=== PATIENT | female | born 1955 | race Hispanic/Latino ===

== ENCOUNTER 2019-02-27 16:24 | Emergency (ER) | payer OTHER, MEDICARE ==
[~2019-02-27] VITALS: Ht 167.6 cm; Wt 54.4 kg
--- OUTSIDE RECORDS SUMMARY | 2019-02-27 16:26 | XMS REPORT ---
Author Author [facility] Address Unknown Phone Unavailable Care Team Providers Care Web Site Manager Name Role Phone Unavailable Unavailable Problems This patient has no known problems. Allergies, Adverse Reactions, Alerts This patient has no known allergies or adverse reactions. Medications This patient has no known medications. Results Test Description Test Time Test Comments Text Results Atomic Results Result Comments RAD, SPINE, LUMBAR, 2 OR 3 VIEWS 2018-11-09 11:34:00 Reason for Exam:->M54.12 FINAL REPORT TECHNIQUE: Frontal, lateral, and cone-down views of the lumbosacral spine dated 11/09/2018. HISTORY: M54.12. COMPARISON: None. FINDINGS:There are 5 [id number] vertebral bodies. Bones are osteopenic. There is an exaggerated lumbar lordosis. No fracture or malalignment is seen. There is narrowing of the L4-L5 and L5-S1 disc space. Bony foraminal narrowing is seen at L4-L5 and L5-S1. Normal bowel gas pattern is seen. IMPRESSION:No fracture or malalignment. Degenerative changes as above. Signed: Marion Tucker MDReport Verified Date/Time: 11/09/2018 11:34:17 Reading Location: [facility] Reading Room , SPINE, CERVICAL, 2 OR 3 VIEWS 2018-11-09 11:26:00 Reason for Exam:->M54.12 FINAL REPORT TECHNIQUE: Frontal, lateral and open mouth views of the cervical spine dated 11/09/2018. HISTORY: M54.12. COMPARISON: None. FINDINGS:The cervical spine is visualized to the skull base to the top of T2. Anterior cervical fusion hardware extending from C3 through C7 with fusion of the vertebral bodies. Bones are osteopenic. There is a normal cervical lordosis. No fracture or malalignment is seen. Prevertebral soft tissues are normal in thickness. Airway is patent. Visualized lung apices are clear. IMPRESSION:No fracture or malalignment. Status post cervical fusion. Signed: Marion Tuckereplyubov Verified Date/Time: 11/09/2018 11:26:14 Reading Location: [facility] Mammo Reading Room
--- NOTE | 2019-02-27 17:40 | Diagnostic Imaging Report ---
RIGHT ANKLE - 3 Image(s) RIGHT FOOT - 3 Image(s) HISTORY: Pain, fell COMPARISON: None available. FINDINGS: Bones: Diffusely decreased mineralization of the osseous structures limits bone detail. No acute displaced fracture. No aggressive osseous lesion. Joints: Osseous alignment is within normal limits and the joint spaces are well-maintained. Soft tissues: The soft tissues appear unremarkable. IMPRESSION: 1. No acute radiographic abnormality. 2. Diffuse osseous demineralization. If pain persists, recommend follow-up radiographs in 10-14 days. Signed by: Dr. Lino Sibley D.O., M.M.M. on 02/27/2019 5:37 PM
== END 2019-02-27 18:44 | disposition home or self-care (01) ==
LOC: ER 16:24
DX: S93.431A Sprain of tibiofibular ligament of right ankle, initial encounter (principal); M79.671 Pain in right foot; X50.1XXA Overexertion from prolonged static or awkward postures, initial encounter; Y92.488 Other paved roadways as the place of occurrence of the external cause
CPT/HCPCS: 99284

== ENCOUNTER → 2019-03-10 | Outpatient (RCR) | payer OTHER, MEDICARE | LOC: PT 09:54 | PROVIDERS: ATTEND Orthopaedic Surgery | DX: S93.491A Sprain of other ligament of right ankle, initial encounter (principal) ==

== ENCOUNTER 2019-04-01 09:53 | Outpatient (RCR) | payer OTHER, MEDICARE | END 2019-04-09 | LOC: PT 09:53 | PROVIDERS: ATTEND Orthopaedic Surgery | DX: S93.401A Sprain of unspecified ligament of right ankle, initial encounter (principal) | CPT/HCPCS: 97139 ==